=== PATIENT | female | born 1955 | race Caucasian/White ===

== ENCOUNTER 2020-01-03 12:26 | Observation (INO) | payer BC ==
[~2020-01-03] VITALS: Ht 154.9 cm; Wt 70.0 kg
[2020-01-03] MEDS ORDERED: aspirin 325mg tablet PO ONE (12:55)
[2020-01-03] MEDS ORDERED: nitroGLYCERIN 0.4mg SUBLingual tab SL PRN ×3 (12:55→17:25)
--- NOTE | 2020-01-03 13:16 | NUR ---
spoke with pt's on the phone (bia) and the pt asked for him to go home and grab her medications to bring in.
[2020-01-03 13:17] LABS: BASOPHILS # (AUTO) 0.1 X10'3 (0-0.2); BASOPHILS % (AUTO) 0.9 % (0-1); EOSINOPHILS # (AUTO) 0.6 X10'3 (0-0.9); EOSINOPHILS % (AUTO) 6.2 % (0-6); HEMATOCRIT 42.2 % (35.0-45.0); HEMOGLOBIN 14.2 g/dl (12.0-16.0); LYMPHOCYTES # (AUTO) 2.7 X10'3 (1.1-4.8); LYMPHOCYTES % (AUTO) 29.6 % (21-51); MEAN CORPUSCULAR HEMOGLOBIN 28.3 PG (27.0-31.0); MEAN CORPUSCULAR HGB CONC 33.6 g/dL (33.0-36.5); MEAN CORPUSCULAR VOLUME 84.2 FL (78-98); MEAN PLATELET VOLUME 7.9 FL (7.4-10.4); MONOCYTES # (AUTO) 0.5 X10'3 (0-0.9); MONOCYTES % (AUTO) 5.5 % (2-12); NEUTROPHILS # (AUTO) 5.3 X10'3 (1.8-7.7); NEUTROPHILS % (AUTO) 57.8 % (42-75); PLATELET COUNT 320 X10'3 (140-440); RED BLOOD COUNT 5.01 X10'6 (4.20-5.60); RED CELL DISTRIBUTION WIDTH 13.9 % (11.5-14.5); WHITE BLOOD COUNT 9.2 X10'3 (4.5-11.0)
[2020-01-03 13:30] LABS: ALANINE AMINOTRANSFERASE 38 U/L (12-78); ALBUMIN 3.5 G/DL (3.4-5.0); ALBUMIN/GLOBULIN RATIO 0.9 (1.1-1.5); ALKALINE PHOSPHATASE 97 IU/L (46-116); ANION GAP 9 (8-16); ASPARTATE AMINO TRANSFERASE 21 U/L (10-37); BILIRUBIN,TOTAL 0.2 MG/DL (0.1-1.0); BLOOD UREA NITROGEN 19 MG/DL (7-18); BUN/CREATININE RATIO 16.8 (6.6-38.0); CALCIUM 9.2 MG/DL (8.5-10.1); CHLORIDE 98 MMOL/L (99-107); CREATININE 1.13 MG/DL (0.40-0.90); GLUCOSE 291 MG/DL (70-104); POTASSIUM 4.2 MMOL/L (3.5-5.1); SODIUM 133 MMOL/L (135-145); TOTAL CARBON DIOXIDE 26.2 MMOL/L (24-32); TOTAL PROTEIN 7.3 G/DL (6.4-8.2); eGFR 49 ML/MIN
[2020-01-03] MEDS ORDERED: EFF37.5XRC PO (13:55)
[2020-01-03] MEDS ORDERED: glucagon, human recombinant 1mg kit SUBCUT PRN (13:55)
[2020-01-03] MEDS ORDERED: SITA100T11 PO (13:55)
[2020-01-03] MEDS ORDERED: dextrose 50%-water 50ml dispensing syringe IV PRN ×2 (13:55)
[2020-01-03] MEDS ORDERED: ondansetron/PF 4mg/2ml inj IV PRN (13:55)
[2020-01-03] MEDS ORDERED: morphine 2 MG/ML inj. syringe IV PRN ×2 (13:55)
[2020-01-03] MEDS ORDERED: MOME13HF2 INH (13:55)
[2020-01-03] MEDS ORDERED: dextrose ORAL solution 15 GM/59 ML bottle PO PRN ×2 (13:55)
[2020-01-03] MEDS ORDERED: insulin Lispro (HumaLOG) vial - multi-dose SQ SCH (13:55)
[2020-01-03] MEDS ORDERED: acetaminophen 325mg tablet PO PRN ×2 (13:55)
[2020-01-03] MEDS ORDERED: mag hydrox/Alum hydrox/simeth 30ml oral suspension PO PRN (13:55)
[2020-01-03] MEDS ORDERED: LISI-600 PO (13:55)
[2020-01-03] MEDS ORDERED: METF500T PO (13:55)
[2020-01-03] MEDS ORDERED: CLON-527 PO (13:55)
[2020-01-03] MEDS ORDERED: OXYB5TAB16 PO (13:55)
[2020-01-03] MEDS ORDERED: NORT25CA5 PO (13:55)
[2020-01-03] MEDS ORDERED: MESSAGE TO PHARMACY PO ONE (13:55)
[2020-01-03] MEDS ORDERED: HYDROcodone/acetaminophen 5mg/325mg tablet PO PRN (13:55)
[2020-01-03] MEDS ORDERED: magnesium hydroxide 30ml (MOM) UD suspension PO PRN (13:55)
[2020-01-03] MEDS ORDERED: FAMO-49 PO (13:55)
--- NOTE | 2020-01-03 14:28 | NUR ---
gave the pt's medications and ID cards and insurance cards back to Neel, who has been waiting outside.
--- NOTE | 2020-01-03 15:03 | NUR ---
Receiving RN not available at this time,will call ED RN less than 5 minutes.
--- NOTE | 2020-01-03 15:23 | NUR ---
Patient in room ED 9. I have received report from Mady ENCISO and had the opportunity to ask questions and assume patient care.
--- NOTE | 2020-01-03 16:00 | NUR ---
Patient arrived from the ED, report from Kris ENCISO and was oriented to the unit, belongings placed in closet, VS 126/78, HR 87, RR 18, 96%, 98.0 degrees, 2 rn skin check completed with Barby ENCISO, MRSA swab complete. Patient is pleasant and resting comfortably
[2020-01-03 16:01] LABS: HEMOGLOBIN A1C 11.1 % (4.5-6.2)
[2020-01-03 16:35] VITALS: BP 126/78
[2020-01-03] MEDS ORDERED: metoprolol tartrate 1mg/ml inj IV PRN (17:25)
[2020-01-03] MEDS ORDERED: aminophylline 250mg/10ml inj. IV PRN (17:25)
[2020-01-03] MEDS ORDERED: regadenoson 0.4mg/5ml syringe IV PRN (17:25)
[2020-01-03 18:00] VITALS: BP 150/83
--- NOTE | 2020-01-03 18:30 | NUR ---
Patient in room PCU 3027. I have received report from Roberth ENCISO and had the opportunity to ask questions and assume patient care.
--- NOTE | 2020-01-03 18:33 | NUR ---
Problems reprioritized. Patient report given, questions answered & plan of care reviewed with Karyn ENCISO.
[2020-01-03] MEDS: famotidine 20mg tablet PO SCH (20:18)
[2020-01-03] MEDS: clonazePAM 1mg tablet PO SCH (20:18)
[2020-01-03] MEDS: oxybutynin 5mg tablet PO SCH (20:18)
[2020-01-03] MEDS: nortriptyline 25mg capsule PO SCH (20:18)
[2020-01-03] MEDS: albuterol 2.5 MG/3 ML nebule NEB SCH (20:30)
[2020-01-03] MEDS: budesonide 0.5mg/2ml UD nebule IH SCH (20:31)
[2020-01-03] MEDS ORDERED: insulin glargine (Lantus) pen - multi-dose SQ SCH (21:00)
[2020-01-03 22:00] VITALS: BP 148/89
[2020-01-03] MEDS ORDERED: pneumococcal 23-VAL P-sac vacc 25 mcg/0.5ml vial IMVAC ONE (22:50)
[2020-01-04] VITALS (10 sets, daily range): BP systolic 106–176; BP diastolic 68–102
[2020-01-04 01:09] LABS: BASOPHILS # (AUTO) 0.1 X10'3 (0-0.2); BASOPHILS % (AUTO) 0.8 % (0-1); EOSINOPHILS # (AUTO) 0.5 X10'3 (0-0.9); EOSINOPHILS % (AUTO) 5.5 % (0-6); HEMATOCRIT 40.3 % (35.0-45.0); HEMOGLOBIN 13.6 g/dl (12.0-16.0); LYMPHOCYTES # (AUTO) 2.6 X10'3 (1.1-4.8); LYMPHOCYTES % (AUTO) 29.8 % (21-51); MEAN CORPUSCULAR HEMOGLOBIN 28.7 PG (27.0-31.0); MEAN CORPUSCULAR HGB CONC 33.6 g/dL (33.0-36.5); MEAN CORPUSCULAR VOLUME 85.3 FL (78-98); MEAN PLATELET VOLUME 7.6 FL (7.4-10.4); MONOCYTES # (AUTO) 0.6 X10'3 (0-0.9); MONOCYTES % (AUTO) 6.8 % (2-12); NEUTROPHILS # (AUTO) 4.9 X10'3 (1.8-7.7); NEUTROPHILS % (AUTO) 57.1 % (42-75); PLATELET COUNT 274 X10'3 (140-440); RED BLOOD COUNT 4.73 X10'6 (4.20-5.60); RED CELL DISTRIBUTION WIDTH 13.5 % (11.5-14.5); WHITE BLOOD COUNT 8.6 X10'3 (4.5-11.0)
[2020-01-04 01:24] LABS: ALBUMIN 3.1 G/DL (3.4-5.0); ANION GAP 8 (8-16); BLOOD UREA NITROGEN 17 MG/DL (7-18); BUN/CREATININE RATIO 15.3 (6.6-38.0); CALCIUM 8.3 MG/DL (8.5-10.1); CHLORIDE 100 MMOL/L (99-107); CHOL/HDL RATIO 5.1 (0.00-4.99); CHOLESTEROL 193 MG/DL (0-200); CREATININE 1.11 MG/DL (0.40-0.90); GLUCOSE 325 MG/DL (70-104); HDL CHOLESTEROL 38 MG/DL (35-60); LDL CHOLESTEROL 122 MG/DL (50-100); POTASSIUM 3.9 MMOL/L (3.5-5.1); SODIUM 137 MMOL/L (135-145); TOTAL CARBON DIOXIDE 28.9 MMOL/L (24-32); TRIGLYCERIDES 231 MG/DL (20-135); eGFR 50 ML/MIN
[2020-01-04] MEDS: albuterol 2.5 MG/3 ML nebule NEB SCH ×2 (02:36→06:55)
--- NOTE | 2020-01-04 06:13 | NUR ---
Problems reprioritized. Patient report given, questions answered & plan of care reviewed with Margret ENCISO.
--- NOTE | 2020-01-04 06:30 | NUR ---
Patient in room PCU 3027. I have received report from ZARIA Boss and had the opportunity to ask questions and assume patient care.
[2020-01-04] MEDS: budesonide 0.5mg/2ml UD nebule IH SCH (06:55)
[2020-01-04] MEDS: clonazePAM 1mg tablet PO SCH (07:54)
[2020-01-04] MEDS: nortriptyline 25mg capsule PO SCH (07:54)
[2020-01-04] MEDS: oxybutynin 5mg tablet PO SCH (07:54)
[2020-01-04] MEDS: famotidine 20mg tablet PO SCH (07:56)
[2020-01-04] MEDS ORDERED: aspirin 81mg tablet.DR PO SCH (08:00)
[2020-01-04] MEDS ORDERED: lisinopril 10 MG tablet PO SCH (08:00)
[2020-01-04] MEDS ORDERED: venlafaxine XR 37.5mg cap (Q24H) PO SCH (08:00)
--- NOTE | 2020-01-04 08:00 | NUR ---
Patient blood glucose 299. Patient NPO for stress test. Does not want Insulin until able to eat. Provided education. Will continue to Monitor.
--- NOTE | 2020-01-04 13:52 | NUR ---
Patient stable for discharge per MD orders. All discharge instructions and education reviewed with patient and all questions answered. PIV discontinues, tip intact, patient tolerated well. dressing CDI. 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 all known belongings collected and sent with patient. Patient transported to V driven by significant other. wheeled to lobby by hospital staff.
== END 2020-01-04 13:51 | disposition home or self-care (01) ==
LOC: ER 12:26 → UNDOADMOB 13:55 → ED HOLD 13:55 → PCU 3S 16:43 → ED HOLD 16:43 → UNDODISOB 01-04 13:51
PROVIDERS: ADMIT Internal Medicine; ATTEND Internal Medicine
DX: I20.9 Angina pectoris, unspecified (principal); E11.8 Type 2 diabetes mellitus with unspecified complications; F41.9 Anxiety disorder, unspecified; F32.9 Major depressive disorder, single episode, unspecified; G47.00 Insomnia, unspecified; I10 Essential (primary) hypertension; J44.9 Chronic obstructive pulmonary disease, unspecified; F17.210 Nicotine dependence, cigarettes, uncomplicated; Z79.899 Other long term (current) drug therapy; Z88.2 Allergy status to sulfonamides
CPT/HCPCS: 36415; 71045; 78452; 80048; 80053; 80061; 82948; 83036; 83880; 84484; 85025; 87081; 93005; 93017; 94640; 94760; 96372; 99285; A9500; G0378; J2785; J1815; J7626

== ENCOUNTER 2021-09-13 14:23 | Emergency (ER) | payer BC ==
[~2021-09-13] VITALS: Ht 154.9 cm; Wt 70.5 kg
[~2021-09-13 14:23] MED LIST: CLON-527 PO; EFF37.5XRC PO; FAMO-49 PO; LISI20TA28 PO; METF500T PO; MOME13HF2 INH; NORT25CA5 PO; OXYB5TAB16 PO; SITA100T11 PO
[2021-09-13 14:44] VITALS: BP 166/87
[2021-09-13] MEDS ORDERED: dexamethasone sod phosphate 10mg/ml inj PO STA (17:27)
[2021-09-13] MEDS ORDERED: PRED20TA PO (17:30)
[2021-09-13] MEDS ORDERED: AZIT-83 PO (17:30)
[2021-09-13] MEDS ORDERED: azithromycin 250mg tablet PO ONE (17:30)
== END 2021-09-13 18:19 | disposition home or self-care (01) ==
LOC: ER 14:25
DX: J44.1 Chronic obstructive pulmonary disease with (acute) exacerbation (principal); I10 Essential (primary) hypertension; J45.909 Unspecified asthma, uncomplicated; E11.9 Type 2 diabetes mellitus without complications; F32.9 Major depressive disorder, single episode, unspecified; Z88.2 Allergy status to sulfonamides; Z79.899 Other long term (current) drug therapy; Z20.822 Contact with and (suspected) exposure to COVID-19
CPT/HCPCS: 87635; 99283; C9803; J1100

== ENCOUNTER 2022-04-10 12:33 | Emergency (ER) | payer BC ==
[~2022-04-10] VITALS: Ht 154.9 cm; Wt 70.5 kg
[2022-04-10 13:04] LABS: BASOPHILS # (AUTO) 0.1 X10'3 (0-0.2); BASOPHILS % (AUTO) 0.9 % (0-1); EOSINOPHILS # (AUTO) 0.6 X10'3 (0-0.9); EOSINOPHILS % (AUTO) 7.8 % (0-6); HEMATOCRIT 36.7 % (35.0-45.0); HEMOGLOBIN 12.4 g/dl (12.0-16.0); LYMPHOCYTES # (AUTO) 2.1 X10'3 (1.1-4.8); LYMPHOCYTES % (AUTO) 30.3 % (21-51); MEAN CORPUSCULAR HEMOGLOBIN 27.8 PG (27.0-31.0); MEAN CORPUSCULAR HGB CONC 33.6 g/dL (33.0-36.5); MEAN CORPUSCULAR VOLUME 82.6 FL (78-98); MONOCYTES # (AUTO) 0.5 X10'3 (0-0.9); MONOCYTES % (AUTO) 7.7 % (2-12); NEUTROPHILS # (AUTO) 3.7 X10'3 (1.8-7.7); NEUTROPHILS % (AUTO) 53.3 % (42-75); PLATELET COUNT 406 X10'3 (140-440); RED BLOOD COUNT 4.44 X10'6 (4.20-5.60); RED CELL DISTRIBUTION WIDTH 14.8 % (11.5-14.5)
[2022-04-10 13:19] LABS: CLARITY,URINE CLEAR (Clear); COLOR,URINE YELLOW (Yellow); GLUCOSE, URINE >=1000 mg/dl (Neg); KETONES,URINE NEGATIVE (Neg); LEUKOCYTE ESTERASE ,URINE NEGATIVE (Neg); NITRITES, URINE NEGATIVE (Neg); OCCULT BLOOD,URINE NEGATIVE (Neg); PROTEIN,URINE NEGATIVE (Neg); UA COLLECTION TYPE CLN CATCH MIDSTREAM; UROBILINOGEN,URINE 0.2 E.U/dL (0.2-1.0)
[2022-04-10 13:21] LABS: ALANINE AMINOTRANSFERASE 29 U/L (12-78); ALBUMIN 3.3 G/DL (3.4-5.0); ALBUMIN/GLOBULIN RATIO 0.8 (1.1-1.5); ALKALINE PHOSPHATASE 98 IU/L (46-116); AMYLASE 41 U/L (25-115); ANION GAP 8 (8-16); ASPARTATE AMINO TRANSFERASE 12 U/L (10-37); BILIRUBIN,TOTAL 0.2 MG/DL (0.1-1.0); BLOOD UREA NITROGEN 17 MG/DL (7-18); BUN/CREATININE RATIO 15.5 (6.6-38.0); CALCIUM 9.2 MG/DL (8.5-10.1); CHLORIDE 98 MMOL/L (99-107); GLUCOSE 267 MG/DL (70-104); LIPASE 62 U/L (73-393); SODIUM 134 MMOL/L (135-145); TOTAL CARBON DIOXIDE 27.6 MMOL/L (24-32); TOTAL PROTEIN 7.6 G/DL (6.4-8.2); eGFR 50 ML/MIN
[2022-04-10 13:25] LABS: RBC,URINE 0-2 /HPF (0-2); SQUAMOUS EPITHELIAL CELL,UR MODERATE /LPF (FEW)
[2022-04-10 13:26] LABS: BACTERIA,URINE FEW /HPF (Neg)
[2022-04-10] MEDS ORDERED: TRAM50TA2 PO (17:39)
[2022-04-10 17:52] VITALS: BP 151/84
== END 2022-04-10 17:55 | disposition home or self-care (01) ==
LOC: ER 12:33
DX: K80.50 Calculus of bile duct without cholangitis or cholecystitis without obstruction (principal); J44.9 Chronic obstructive pulmonary disease, unspecified; E11.9 Type 2 diabetes mellitus without complications; J45.909 Unspecified asthma, uncomplicated; I10 Essential (primary) hypertension; F17.200 Nicotine dependence, unspecified, uncomplicated; Z88.2 Allergy status to sulfonamides; Z79.899 Other long term (current) drug therapy
CPT/HCPCS: 36415; 76700; 80053; 81001; 82150; 83690; 85025; 87077; 87088; 87186; 99284

== ENCOUNTER 2022-08-23 11:54 | Emergency (ER) | payer BC ==
[~2022-08-23] VITALS: Ht 154.9 cm; Wt 62.7 kg
[~2022-08-23 11:54] MED LIST changes: +BACL10TA2 PO; -EFF37.5XRC PO; +HYDR25TA4 PO; +LANTUS SQ; -LISI20TA28 PO; +LOSA50TA64 PO; -SITA100T11 PO; +VENL75CA61 PO
[2022-08-23 17:03] LABS: ALANINE AMINOTRANSFERASE 33 U/L (12-78); ALBUMIN 2.7 G/DL (3.4-5.0); ALBUMIN/GLOBULIN RATIO 0.6 (1.1-1.5); ALKALINE PHOSPHATASE 65 IU/L (46-116); ANION GAP 10 (8-16); ASPARTATE AMINO TRANSFERASE 51 U/L (10-37); BILIRUBIN,TOTAL 0.5 MG/DL (0.1-1.0); BLOOD UREA NITROGEN 26 MG/DL (7-18); BUN/CREATININE RATIO 15.3 (6.6-38.0); CHLORIDE 96 MMOL/L (99-107); GLUCOSE 107 MG/DL (70-104); POTASSIUM 3.7 MMOL/L (3.5-5.1); SODIUM 133 MMOL/L (135-145); TOTAL CARBON DIOXIDE 27.2 MMOL/L (24-32); TOTAL PROTEIN 6.9 G/DL (6.4-8.2); eGFR 30 ML/MIN
[2022-08-23 17:59] LABS: BASOPHILS % (AUTO) 0.4 % (0-1); EOSINOPHILS # (AUTO) 0.1 X10'3 (0-0.9); EOSINOPHILS % (AUTO) 1.3 % (0-6); HEMATOCRIT 32.2 % (35.0-45.0); HEMOGLOBIN 10.7 g/dl (12.0-16.0); LYMPHOCYTES # (AUTO) 1.9 X10'3 (1.1-4.8); LYMPHOCYTES % (AUTO) 19.3 % (21-51); MEAN CORPUSCULAR HEMOGLOBIN 27.5 PG (27.0-31.0); MEAN CORPUSCULAR HGB CONC 33.2 g/dL (33.0-36.5); MEAN PLATELET VOLUME 7.7 FL (7.4-10.4); MONOCYTES # (AUTO) 1.2 X10'3 (0-0.9); MONOCYTES % (AUTO) 12.3 % (2-12); NEUTROPHILS # (AUTO) 6.6 X10'3 (1.8-7.7); NEUTROPHILS % (AUTO) 66.7 % (42-75); PLATELET COUNT 254 X10'3 (140-440); RED BLOOD COUNT 3.88 X10'6 (4.20-5.60); WHITE BLOOD COUNT 9.8 X10'3 (4.5-11.0)
[2022-08-23] MEDS ORDERED: ONDA8TAB13 PO (18:35)
[2022-08-23 19:19] VITALS: BP 128/67
== END 2022-08-23 19:20 | disposition home or self-care (01) ==
LOC: ER 11:54
DX: R53.81 Other malaise (principal); Z20.822 Contact with and (suspected) exposure to COVID-19; R53.83 Other fatigue; R11.10 Vomiting, unspecified; R05.9 Cough, unspecified; I10 Essential (primary) hypertension; J45.909 Unspecified asthma, uncomplicated; J44.9 Chronic obstructive pulmonary disease, unspecified; E11.9 Type 2 diabetes mellitus without complications; G89.29 Other chronic pain; Z88.2 Allergy status to sulfonamides
CPT/HCPCS: 36415; 71046; 80053; 85025; 87502; 87503; 87635; 99284; C9803

== ENCOUNTER 2022-09-21 09:21 | Emergency (ER) | payer BC ==
[~2022-09-21] VITALS: Ht 154.9 cm; Wt 68.0 kg
[~2022-09-21 09:21] MED LIST changes: +ASPI-611 PO; +ATOR10TA PO; +COR3.125T PO; -FAMO-49 PO; +FLUT1BLS12 PO; +FURO40TA4 PO; -HYDR25TA4 PO; -MOME13HF2 INH; +ONDA8TAB13 PO; +SPIR25TA PO
[2022-09-21 09:37] LABS: BASOPHILS # (AUTO) 0.1 X10'3 (0-0.2); BASOPHILS % (AUTO) 0.8 % (0-1); EOSINOPHILS # (AUTO) 1.4 X10'3 (0-0.9); EOSINOPHILS % (AUTO) 14.6 % (0-6); HEMATOCRIT 35.3 % (35.0-45.0); HEMOGLOBIN 11.5 g/dl (12.0-16.0); MEAN CORPUSCULAR HEMOGLOBIN 27.6 PG (27.0-31.0); MEAN CORPUSCULAR HGB CONC 32.7 g/dL (33.0-36.5); MEAN CORPUSCULAR VOLUME 84.6 FL (78-98); MEAN PLATELET VOLUME 7.7 FL (7.4-10.4); MONOCYTES # (AUTO) 0.7 X10'3 (0-0.9); MONOCYTES % (AUTO) 7.3 % (2-12); NEUTROPHILS # (AUTO) 4.2 X10'3 (1.8-7.7); NEUTROPHILS % (AUTO) 45.3 % (42-75); PLATELET COUNT 341 X10'3 (140-440); RED BLOOD COUNT 4.17 X10'6 (4.20-5.60); RED CELL DISTRIBUTION WIDTH 15.2 % (11.5-14.5); WHITE BLOOD COUNT 9.3 X10'3 (4.5-11.0)
[2022-09-21 10:05] LABS: ALANINE AMINOTRANSFERASE 15 U/L (12-78); ALBUMIN 3.6 G/DL (3.4-5.0); ALBUMIN/GLOBULIN RATIO 0.9 (1.1-1.5); ALKALINE PHOSPHATASE 83 IU/L (46-116); ANION GAP 9 (8-16); ASPARTATE AMINO TRANSFERASE 14 U/L (10-37); BILIRUBIN,TOTAL 0.3 MG/DL (0.1-1.0); BLOOD UREA NITROGEN 32 MG/DL (7-18); BUN/CREATININE RATIO 19.6 (6.6-38.0); CALCIUM 9.2 MG/DL (8.5-10.1); CHLORIDE 100 MMOL/L (99-107); CREATININE 1.63 MG/DL (0.40-0.90); GLUCOSE 122 MG/DL (70-104); POTASSIUM 4.8 MMOL/L (3.5-5.1); SODIUM 138 MMOL/L (135-145); TOTAL CARBON DIOXIDE 28.6 MMOL/L (24-32); TOTAL PROTEIN 7.7 G/DL (6.4-8.2); eGFR 32 ML/MIN
[2022-09-21 10:12] LABS: MAGNESIUM 1.7 MG/DL (1.5-2.4)
--- NOTE | 2022-09-21 10:49 | NUR ---
Note nallely in EDM - 09/21/22 at [address] Nunu Scott RN RE: Ella Alves. Pt in pain she is asking for [place], she refused Tylenol.
[2022-09-21] MEDS ORDERED: FURO-150 PO (13:28)
[2022-09-21] MEDS ORDERED: SACU1TAB7 PO (13:28)
[2022-09-21 13:56] VITALS: BP 125/83
== END 2022-09-21 13:59 | disposition home or self-care (01) ==
LOC: ER 09:21
DX: I50.21 Acute systolic (congestive) heart failure (principal); R07.9 Chest pain, unspecified; I13.2 Hypertensive heart and chronic kidney disease with heart failure and with stage 5 chronic kidney disease, or end stage renal disease; E09.22 Drug or chemical induced diabetes mellitus with diabetic chronic kidney disease; N18.6 End stage renal disease; G89.29 Other chronic pain; F32.A Depression, unspecified; J44.9 Chronic obstructive pulmonary disease, unspecified; Z88.2 Allergy status to sulfonamides; Z79.899 Other long term (current) drug therapy; Z79.82 Long term (current) use of aspirin; Z79.1 Long term (current) use of non-steroidal anti-inflammatories (NSAID); Z79.2 Long term (current) use of antibiotics
CPT/HCPCS: 36415; 71045; 80053; 82948; 83735; 83880; 84439; 84484; 85025; 93005; 99285

== ENCOUNTER 2023-06-15 09:08 | Inpatient (IN) | payer BC ==
[~2023-06-15] VITALS: Ht 154.9 cm; Wt 78.0 kg
[~2023-06-15 09:08] MED LIST changes: -FURO40TA4 PO; +SACU1TAB7 PO
[2023-06-15 10:23] LABS: BASOPHILS % (AUTO) 0.6 % (0-1); EOSINOPHILS # (AUTO) 0.7 X10'3 (0-0.9); EOSINOPHILS % (AUTO) 8.2 % (0-6); HEMATOCRIT 33.5 % (35.0-45.0); HEMOGLOBIN 11.2 g/dl (12.0-16.0); LYMPHOCYTES # (AUTO) 2.1 X10'3 (1.1-4.8); LYMPHOCYTES % (AUTO) 24.3 % (21-51); MEAN CORPUSCULAR HGB CONC 33.4 g/dL (33.0-36.5); MEAN CORPUSCULAR VOLUME 86.8 FL (78-98); MEAN PLATELET VOLUME 7.3 FL (7.4-10.4); MONOCYTES # (AUTO) 0.4 X10'3 (0-0.9); MONOCYTES % (AUTO) 4.5 % (2-12); NEUTROPHILS # (AUTO) 5.5 X10'3 (1.8-7.7); NEUTROPHILS % (AUTO) 62.4 % (42-75); PLATELET COUNT 281 X10'3 (140-440); RED BLOOD COUNT 3.86 X10'6 (4.20-5.60); WHITE BLOOD COUNT 8.7 X10'3 (4.5-11.0)
[2023-06-15 10:37] LABS: ALANINE AMINOTRANSFERASE 13 U/L (12-78); ALBUMIN 3.4 G/DL (3.4-5.0); ALBUMIN/GLOBULIN RATIO 0.8 (1.1-1.5); ALKALINE PHOSPHATASE 91 IU/L (46-116); ANION GAP 10 (8-16); ASPARTATE AMINO TRANSFERASE 12 U/L (10-37); BILIRUBIN,TOTAL 0.2 MG/DL (0.1-1.0); BLOOD UREA NITROGEN 60 MG/DL (7-18); BUN/CREATININE RATIO 19.8 (10.0-20.0); CALCIUM 9.3 MG/DL (8.5-10.1); CHLORIDE 101 MMOL/L (99-107); CREATININE 3.03 MG/DL (0.40-0.90); GLUCOSE 128 MG/DL (70-104); POTASSIUM 5.7 MMOL/L (3.5-5.1); SODIUM 135 MMOL/L (135-145); TOTAL CARBON DIOXIDE 23.9 MMOL/L (24-32); TOTAL PROTEIN 7.7 G/DL (6.4-8.2); eCRCL 14 ML/MIN; eGFR 15 ML/MIN
--- NOTE | 2023-06-15 11:08 | NUR ---
I REVIEWED AND AGREE WITH THE ASSESSMENT.
[2023-06-15] MEDS ORDERED: normal saline 1000ML IV soln IVB ONE (11:20)
[2023-06-15] MEDS ORDERED: normal saline 1000ml 1,000 ML IV ONE (11:40)
[2023-06-15] MEDS ORDERED: glucagon, human recombinant 1mg kit SUBCUT PRN (13:35)
[2023-06-15] MEDS ORDERED: magnesium 4gm in 100ml NS 100 ML IV PRN (13:35)
[2023-06-15] MEDS ORDERED: acetaminophen 325mg tablet PO PRN (13:35)
[2023-06-15] MEDS: normal saline 1000ml 1,000 ML IV SCH ×3 (13:35→20:22)
[2023-06-15] MEDS ORDERED: potassium Cl 20 mEq SR tablet PO PRN ×2 (13:35)
[2023-06-15] MEDS ORDERED: mag hydrox/Alum hydrox/simeth 30ml oral suspension PO PRN (13:35)
[2023-06-15] MEDS ORDERED: DEXTROSE 15 GM of carb/4 tabs (each vial/BOTTLE has 4 tablets) PO PRN ×2 (13:35)
[2023-06-15] MEDS ORDERED: magnesium 2GM in 50ml NS 50 ML IV PRN (13:35)
[2023-06-15] MEDS ORDERED: MESSAGE TO PHARMACY PO ONE (13:35)
[2023-06-15] MEDS ORDERED: PERFLUTREN PROTEIN-A MICROSPHR (Optison) 0.22 MG/ML 3ML VIAL IV ONE (13:35)
[2023-06-15] MEDS ORDERED: dextrose 50%-water 50ml dispensing syringe IV PRN ×2 (13:35)
[2023-06-15] MEDS ORDERED: potassium Cl 40MEQ/1/2NS 520ml 520 ML IV PRN (13:35)
[2023-06-15] MEDS ORDERED: FLUT1BLS12 PO (14:25)
[2023-06-15] MEDS ORDERED: LANTUS SQ (14:25)
[2023-06-15] MEDS ORDERED: NORT25CA PO (14:25)
[2023-06-15] MEDS ORDERED: CLON1TAB12 PO (14:25)
[2023-06-15] MEDS ORDERED: OXYB5TAB16 PO (14:25)
[2023-06-15] MEDS ORDERED: FURO40TA4 PO (14:25)
[2023-06-15] MEDS ORDERED: ATOR10TA70 PO (14:25)
[2023-06-15] MEDS ORDERED: BACL10TA2 PO (14:25)
[2023-06-15] MEDS ORDERED: CARV-50 PO (14:25)
[2023-06-15] MEDS ORDERED: METF-438 PO (14:25)
[2023-06-15] MEDS ORDERED: SACU1TAB7 PO (14:25)
[2023-06-15] MEDS ORDERED: VENL75CA61 PO (14:27)
[2023-06-15] MEDS ORDERED: ACET-2006 PO (14:27)
[2023-06-15] MEDS ORDERED: SPIR25TA5 PO (14:27)
--- NOTE | 2023-06-15 15:00 | NUR ---
TOBACCO SAMPLER AT BEDSIDE
[2023-06-15 15:54] LABS: BILIRUBIN,URINE NEGATIVE (Neg); CLARITY,URINE SLIGHTLY CLOUDY (Clear); COLOR,URINE STRAW (Yellow); GLUCOSE, URINE NEGATIVE (Neg); KETONES,URINE NEGATIVE (Neg); LEUKOCYTE ESTERASE ,URINE MODERATE (Neg); NITRITES, URINE NEGATIVE (Neg); OCCULT BLOOD,URINE NEGATIVE (Neg); PH,URINE 5.5 (4.8-8.0); PROTEIN,URINE NEGATIVE (Neg); UROBILINOGEN,URINE 0.2 E.U/dL (0.2-1.0)
[2023-06-15 15:56] LABS: UA COLLECTION TYPE STRAIGHT CATH
[2023-06-15 16:04] LABS: BACTERIA,URINE FEW /HPF (Neg); MUCUS STRANDS NONE SEEN /LPF (Neg); RBC,URINE NONE SEEN /HPF (0-2); SQUAMOUS EPITHELIAL CELL,UR NONE SEEN /LPF (FEW); WBC CLUMPS,URINE MODERATE /HPF (NEGATIVE); WBC,URINE 30-50 /HPF (0-4); YEAST FEW /HPF (NEGATIVE)
[2023-06-15] MEDS ORDERED: acetaminophen 325mg tablet PO ONE (16:10)
--- NOTE | 2023-06-15 18:14 | NUR ---
dr caraballo came and checked on patient with verbal to up fluids from 60 ml per hour to 120 ml per hour and map to stay above 60
--- NOTE | 2023-06-15 18:20 | NUR ---
Patient arrived from ER on [facility].
--- NOTE | 2023-06-15 19:15 | NUR ---
Report given to me by Tian ENCISO from ER.
[2023-06-15] MEDS: docusate sod 100mg capsule PO SCH (20:00)
[2023-06-15] MEDS: K and/or MAG REPLACEMENT MC SCH (20:00)
--- NOTE | 2023-06-15 20:00 | NUR ---
C/O that she has asthma and can't wear oxygen since it dries her nose out and she can't breathe with it. She has has been blowing her nose repeatedly and asking for her inhaler that is prescribed. Her oxygen saturation is wnl's. C/O shortness of breath with blowing her nose, chronic issue Addendum: 06/16/23 at 0147 by Phuong Alford RN Amended: Links added.
[2023-06-15] MEDS ORDERED: CefTRIAXone/D5W-Rocephin 1gm 50 ML IV ONE (20:40)
[2023-06-15 21:00] VITALS: BP_SYST 128; BP_SYST 82; BP_DIAS 43; BP_DIAS 65; PULSE 72; RESP 17; TEMP 96.8; O2SAT 99
[2023-06-15 21:05] VITALS: BP 89/50
[2023-06-15 21:20] VITALS: BP 110/68
[2023-06-15 22:00] VITALS: BP 110/68; PULSE 63; RESP 16; TEMP 96.9; O2SAT 96
[2023-06-15] MEDS: heparin, porcine 5000 units/ml vial SQ SCH (22:01)
[2023-06-15] MEDS: diphenhydrAMINE 25mg capsule PO PRN (22:02)
[2023-06-15] MEDS: acetaminophen 325mg tablet PO PRN (22:03)
[2023-06-15] MEDS: clonazePAM 1mg tablet PO SCH (22:59)
[2023-06-15] MEDS: oxybutynin 5mg tablet PO SCH (22:59)
[2023-06-15] MEDS: nortriptyline 25mg capsule PO SCH (22:59)
[2023-06-15] MEDS: carVEDilol 12.5mg tablet PO SCH (22:59)
[2023-06-15] MEDS: insulin glargine (Lantus) pen - multi-dose SQ SCH (23:05)
--- NOTE | 2023-06-15 23:50 | NUR ---
Patient report given, questions answered & plan of care reviewed with Mariola ENCISO.
[2023-06-16] VITALS (9 sets, daily range): BP systolic 131–144; BP diastolic 61–70; PULSE 60–81; RESP 16–18; TEMP 96.8–97.7; O2SAT 94–100
[2023-06-16] MEDS: normal saline 1000ml 1,000 ML IV SCH ×3 (02:55→22:55)
[2023-06-16 04:22] LABS: BASOPHILS % (AUTO) 0.6 % (0-1); EOSINOPHILS # (AUTO) 0.6 X10'3 (0-0.9); EOSINOPHILS % (AUTO) 8.9 % (0-6); HEMATOCRIT 29.7 % (35.0-45.0); HEMOGLOBIN 9.8 g/dl (12.0-16.0); LYMPHOCYTES # (AUTO) 2.5 X10'3 (1.1-4.8); LYMPHOCYTES % (AUTO) 34.3 % (21-51); MEAN CORPUSCULAR HEMOGLOBIN 28.7 PG (27.0-31.0); MEAN CORPUSCULAR HGB CONC 33.2 g/dL (33.0-36.5); MEAN CORPUSCULAR VOLUME 86.6 FL (78-98); MEAN PLATELET VOLUME 7.9 FL (7.4-10.4); MONOCYTES # (AUTO) 0.5 X10'3 (0-0.9); MONOCYTES % (AUTO) 6.5 % (2-12); NEUTROPHILS # (AUTO) 3.6 X10'3 (1.8-7.7); NEUTROPHILS % (AUTO) 49.7 % (42-75); PLATELET COUNT 248 X10'3 (140-440); RED BLOOD COUNT 3.43 X10'6 (4.20-5.60); WHITE BLOOD COUNT 7.3 X10'3 (4.5-11.0)
[2023-06-16 04:38] LABS: ALANINE AMINOTRANSFERASE 10 U/L (12-78); ALBUMIN 2.8 G/DL (3.4-5.0); ALBUMIN/GLOBULIN RATIO 0.8 (1.1-1.5); ALKALINE PHOSPHATASE 78 IU/L (46-116); ANION GAP 7 (8-16); ASPARTATE AMINO TRANSFERASE 10 U/L (10-37); BILIRUBIN,TOTAL 0.1 MG/DL (0.1-1.0); BLOOD UREA NITROGEN 46 MG/DL (7-18); BUN/CREATININE RATIO 21.1 (10.0-20.0); CALCIUM 8.5 MG/DL (8.5-10.1); CHLORIDE 107 MMOL/L (99-107); CREATININE 2.18 MG/DL (0.40-0.90); GLUCOSE 131 MG/DL (70-104); MAGNESIUM 1.8 MG/DL (1.5-2.4); POTASSIUM 4.8 MMOL/L (3.5-5.1); PRO BRAIN NATRIURETIC PEPTIDE 1187 PG/ML (0-125); SODIUM 139 MMOL/L (135-145); TOTAL CARBON DIOXIDE 25.5 MMOL/L (24-32); TOTAL PROTEIN 6.3 G/DL (6.4-8.2); eCRCL 19 ML/MIN; eGFR 23 ML/MIN
--- NOTE | 2023-06-16 06:50 | NUR ---
Patient in room ORTHO 4021. I have received report from [employer] and had the opportunity to ask questions and assume patient care.
[2023-06-16] MEDS: carVEDilol 12.5mg tablet PO SCH ×2 (07:46→20:28)
[2023-06-16] MEDS: atorvastatin 10mg tablet PO SCH (07:47)
[2023-06-16] MEDS: heparin, porcine 5000 units/ml vial SQ SCH ×2 (07:48→20:29)
[2023-06-16] MEDS: clonazePAM 1mg tablet PO SCH ×2 (07:49→20:28)
[2023-06-16] MEDS: oxybutynin 5mg tablet PO SCH ×2 (07:51→20:28)
[2023-06-16] MEDS: nortriptyline 25mg capsule PO SCH ×2 (07:52→20:28)
[2023-06-16] MEDS: docusate sod 100mg capsule PO SCH ×2 (08:00→20:28)
[2023-06-16] MEDS: CefTRIAXone/D5W-Rocephin 1gm 50 ML IV SCH (08:12)
[2023-06-16] MEDS: K and/or MAG REPLACEMENT MC SCH ×2 (08:13→20:00)
--- NOTE | 2023-06-16 11:00 | NUR ---
pt seen with Dr Henderson, new orders received to discontinue IV fluids now that Mary is drinking, CXR ordered to assess lung status
--- NOTE | 2023-06-16 12:03 | NUR ---
spoke with Geovanna in pharmacy regarding her home [place], they will switch to meds per isaiah to order Addendum: 06/16/23 at 1204 by Megan Nolasco RN Amended: Links added.
--- NOTE | 2023-06-16 14:06 | NUR ---
[facility] 4024K ok to increase diet from clears to carb control? Megan Ext [id number]
[2023-06-16] MEDS ORDERED: albuterol 2.5 MG/3 ML nebule NEB SCH (16:42)
[2023-06-16] MEDS ORDERED: budesonide 0.5mg/2ml UD nebule IH SCH (16:43)
--- NOTE | 2023-06-16 17:17 | NUR ---
Orientee documentation:Mervat RN I have reviewed and agree with all interventions, medication administration per hospital policy, and assessments performed and documented by orientee. Reviewed assessments and provided appropriate feedback. ZARIA sue made updates to the documentation where needed.
--- NOTE | 2023-06-16 18:25 | NUR ---
Patient in room ORTHO 4021. I have received report from ZARIA RAMOS and had the opportunity to ask questions and assume patient care.
[2023-06-16] MEDS: insulin Lispro (HumaLOG) vial - multi-dose SQ SCH (19:52)
[2023-06-16] MEDS: albuterol 2.5 MG/3 ML nebule NEB SCH (20:41)
[2023-06-16] MEDS: budesonide 0.5mg/2ml UD nebule IH SCH (20:42)
[2023-06-16] MEDS: insulin glargine (Lantus) pen - multi-dose SQ SCH (22:08)
[2023-06-17] VITALS (14 sets, daily range): BP systolic 121–138; BP diastolic 74–85; PULSE 60–97; RESP 16–22; TEMP 97.4–98.1; O2SAT 95–99
[2023-06-17] MEDS: albuterol 2.5 MG/3 ML nebule NEB SCH ×4 (03:04→20:09)
[2023-06-17] MEDS: acetaminophen 325mg tablet PO PRN ×2 (03:21→21:27)
--- NOTE | 2023-06-17 06:00 | NUR ---
report received from Chelsea Ordoñez RN, care assumed. Megan ENCISO
[2023-06-17 06:37] LABS: ALANINE AMINOTRANSFERASE 15 U/L (12-78); ALBUMIN 2.8 G/DL (3.4-5.0); ALBUMIN/GLOBULIN RATIO 0.7 (1.1-1.5); ALKALINE PHOSPHATASE 78 IU/L (46-116); ANION GAP 6 (8-16); ASPARTATE AMINO TRANSFERASE 14 U/L (10-37); BILIRUBIN,TOTAL 0.2 MG/DL (0.1-1.0); BLOOD UREA NITROGEN 28 MG/DL (7-18); BUN/CREATININE RATIO 16.8 (10.0-20.0); CALCIUM 8.8 MG/DL (8.5-10.1); CHLORIDE 106 MMOL/L (99-107); CREATININE 1.67 MG/DL (0.40-0.90); GLUCOSE 139 MG/DL (70-104); MAGNESIUM 1.5 MG/DL (1.5-2.4); POTASSIUM 5.5 MMOL/L (3.5-5.1); SODIUM 138 MMOL/L (135-145); TOTAL PROTEIN 6.7 G/DL (6.4-8.2); eCRCL 25 ML/MIN; eGFR 31 ML/MIN
[2023-06-17 06:39] LABS: BASOPHILS % (AUTO) 0.4 % (0-1); EOSINOPHILS # (AUTO) 0.8 X10'3 (0-0.9); EOSINOPHILS % (AUTO) 9.4 % (0-6); HEMOGLOBIN 10.6 g/dl (12.0-16.0); LYMPHOCYTES # (AUTO) 2.4 X10'3 (1.1-4.8); LYMPHOCYTES % (AUTO) 29.1 % (21-51); MEAN CORPUSCULAR HEMOGLOBIN 28.9 PG (27.0-31.0); MEAN CORPUSCULAR HGB CONC 34.1 g/dL (33.0-36.5); MEAN CORPUSCULAR VOLUME 84.7 FL (78-98); MEAN PLATELET VOLUME 7.9 FL (7.4-10.4); MONOCYTES # (AUTO) 0.4 X10'3 (0-0.9); MONOCYTES % (AUTO) 5.4 % (2-12); NEUTROPHILS # (AUTO) 4.6 X10'3 (1.8-7.7); NEUTROPHILS % (AUTO) 55.7 % (42-75); PLATELET COUNT 285 X10'3 (140-440); RED BLOOD COUNT 3.66 X10'6 (4.20-5.60); RED CELL DISTRIBUTION WIDTH 13.9 % (11.5-14.5); WHITE BLOOD COUNT 8.2 X10'3 (4.5-11.0)
--- NOTE | 2023-06-17 06:41 | NUR ---
Patient in room ORTHO 4021. I have received report from Megan RN, orientee, and had the opportunity to ask questions and assume patient care.
[2023-06-17] MEDS: normal saline 1000ml 1,000 ML IV SCH (07:00)
[2023-06-17] MEDS: nortriptyline 25mg capsule PO SCH ×2 (07:24→20:27)
[2023-06-17] MEDS: atorvastatin 10mg tablet PO SCH (07:24)
[2023-06-17] MEDS: carVEDilol 12.5mg tablet PO SCH ×2 (07:24→20:26)
[2023-06-17] MEDS: clonazePAM 1mg tablet PO SCH ×2 (07:24→20:27)
[2023-06-17] MEDS: heparin, porcine 5000 units/ml vial SQ SCH ×2 (07:28→20:26)
[2023-06-17] MEDS: docusate sod 100mg capsule PO SCH ×2 (08:00→20:26)
[2023-06-17] MEDS: K and/or MAG REPLACEMENT MC SCH ×2 (08:53→20:00)
[2023-06-17] MEDS: oxybutynin 5mg tablet PO SCH ×2 (08:55→20:26)
[2023-06-17] MEDS: CefTRIAXone/D5W-Rocephin 1gm 50 ML IV SCH (08:56)
[2023-06-17] MEDS: budesonide 0.5mg/2ml UD nebule IH SCH ×2 (09:00→20:09)
[2023-06-17] MEDS: insulin Lispro (HumaLOG) vial - multi-dose SQ SCH ×3 (09:41→19:42)
[2023-06-17 15:58] LABS: ALBUMIN 2.7 G/DL (3.4-5.0); ANION GAP 5 (8-16); BLOOD UREA NITROGEN 28 MG/DL (7-18); CALCIUM 8.8 MG/DL (8.5-10.1); CHLORIDE 105 MMOL/L (99-107); CREATININE 1.87 MG/DL (0.40-0.90); GLUCOSE 106 MG/DL (70-104); POTASSIUM 4.4 MMOL/L (3.5-5.1); SODIUM 136 MMOL/L (135-145); TOTAL CARBON DIOXIDE 26.1 MMOL/L (24-32); eCRCL 22 ML/MIN; eGFR 27 ML/MIN
--- NOTE | 2023-06-17 18:30 | NUR ---
report given to Trace Guzman RN Addendum: 06/17/23 at 1830 by Megan Nolasco RN Amended: Links added.
[2023-06-17] MEDS: fluconazole 100mg tablet PO SCH (20:26)
[2023-06-17] MEDS: sacubitril/valsartan 49mg-51mg tablet PO SCH (21:15)
[2023-06-17] MEDS: diphenhydrAMINE 25mg capsule PO PRN (21:28)
[2023-06-17] MEDS: insulin glargine (Lantus) pen - multi-dose SQ SCH (21:32)
[2023-06-18] VITALS (14 sets, daily range): BP systolic 109–145; BP diastolic 68–84; PULSE 72–91; RESP 14–18; TEMP 98–98.8; O2SAT 93–98
[2023-06-18] MEDS: albuterol 2.5 MG/3 ML nebule NEB SCH ×4 (03:04→20:34)
[2023-06-18 06:26] LABS: ALANINE AMINOTRANSFERASE 16 U/L (12-78); ALBUMIN/GLOBULIN RATIO 0.8 (1.1-1.5); ALKALINE PHOSPHATASE 83 IU/L (46-116); ANION GAP 9 (8-16); ASPARTATE AMINO TRANSFERASE 13 U/L (10-37); BILIRUBIN,TOTAL 0.2 MG/DL (0.1-1.0); BLOOD UREA NITROGEN 26 MG/DL (7-18); BUN/CREATININE RATIO 14.4 (10.0-20.0); CALCIUM 9.1 MG/DL (8.5-10.1); CHLORIDE 103 MMOL/L (99-107); GLUCOSE 186 MG/DL (70-104); MAGNESIUM 1.4 MG/DL (1.5-2.4); SODIUM 137 MMOL/L (135-145); TOTAL CARBON DIOXIDE 25.3 MMOL/L (24-32); eCRCL 23 ML/MIN; eGFR 28 ML/MIN
--- NOTE | 2023-06-18 06:30 | NUR ---
Problems reprioritized. Patient report given, questions answered & plan of care reviewed with Douglas. Addendum: 06/18/23 at 0640 by Mejia Land RN Amended: Links added.
[2023-06-18 06:34] LABS: BASOPHILS % (AUTO) 0.5 % (0-1); EOSINOPHILS # (AUTO) 0.6 X10'3 (0-0.9); EOSINOPHILS % (AUTO) 6.7 % (0-6); HEMATOCRIT 32.2 % (35.0-45.0); HEMOGLOBIN 10.8 g/dl (12.0-16.0); LYMPHOCYTES # (AUTO) 2.1 X10'3 (1.1-4.8); LYMPHOCYTES % (AUTO) 25.8 % (21-51); MEAN CORPUSCULAR HEMOGLOBIN 28.6 PG (27.0-31.0); MEAN CORPUSCULAR HGB CONC 33.6 g/dL (33.0-36.5); MEAN CORPUSCULAR VOLUME 85.2 FL (78-98); MEAN PLATELET VOLUME 7.8 FL (7.4-10.4); MONOCYTES # (AUTO) 0.6 X10'3 (0-0.9); MONOCYTES % (AUTO) 6.7 % (2-12); NEUTROPHILS % (AUTO) 60.3 % (42-75); PLATELET COUNT 297 X10'3 (140-440); RED BLOOD COUNT 3.79 X10'6 (4.20-5.60); WHITE BLOOD COUNT 8.3 X10'3 (4.5-11.0)
--- NOTE | 2023-06-18 06:51 | NUR ---
Patient in room ORTHO 4021. I have received report from BRADY ENCISO and had the opportunity to ask questions and assume patient care.
[2023-06-18] MEDS: CefTRIAXone/D5W-Rocephin 1gm 50 ML IV SCH (07:14)
[2023-06-18] MEDS: ondansetron/PF 4mg/2ml inj IV PRN ×2 (07:14→19:46)
[2023-06-18] MEDS: fluconazole 100mg tablet PO SCH (07:14)
[2023-06-18] MEDS: nortriptyline 25mg capsule PO SCH ×2 (07:15→19:52)
[2023-06-18] MEDS: sacubitril/valsartan 49mg-51mg tablet PO SCH ×2 (07:15→19:53)
[2023-06-18] MEDS: docusate sod 100mg capsule PO SCH ×2 (07:16→19:50)
[2023-06-18] MEDS: heparin, porcine 5000 units/ml vial SQ SCH ×2 (07:16→19:52)
[2023-06-18] MEDS: carVEDilol 12.5mg tablet PO SCH ×2 (07:16→19:50)
[2023-06-18] MEDS: oxybutynin 5mg tablet PO SCH ×2 (07:17→19:50)
[2023-06-18] MEDS: clonazePAM 1mg tablet PO SCH ×2 (07:17→19:50)
[2023-06-18] MEDS: venlafaxine XR 75mg capsule (Q24H) PO SCH (07:17)
[2023-06-18] MEDS: atorvastatin 10mg tablet PO SCH (07:17)
[2023-06-18] MEDS: K and/or MAG REPLACEMENT MC SCH ×2 (08:00→19:50)
[2023-06-18] MEDS: normal saline 1000ml 1,000 ML IV SCH ×2 (08:15→13:52)
[2023-06-18] MEDS: budesonide 0.5mg/2ml UD nebule IH SCH ×2 (08:55→20:34)
[2023-06-18] MEDS: acetaminophen 325mg tablet PO PRN ×2 (09:10→19:54)
[2023-06-18] MEDS: insulin Lispro (HumaLOG) vial - multi-dose SQ SCH ×3 (10:38→19:45)
[2023-06-18] MEDS ORDERED: magnesium oxide 400mg tablet PO ONE (12:45)
[2023-06-18] MEDS: nystatin 15 GM powder TP SCH ×2 (13:03→21:42)
[2023-06-18] MEDS ORDERED: magnesium 4gm in 100ml NS 100 ML IV PRN (15:25)
[2023-06-18] MEDS ORDERED: potassium Cl 40MEQ/1/2NS 520ml 520 ML IV PRN (15:25)
[2023-06-18] MEDS ORDERED: magnesium Cl slow-release 64mg tablet PO PRN (15:25)
[2023-06-18] MEDS ORDERED: potassium Cl 20 mEq SR tablet PO PRN ×2 (15:25)
[2023-06-18] MEDS ORDERED: magnesium 2GM in 50ml NS 50 ML IV PRN (15:25)
--- NOTE | 2023-06-18 18:25 | NUR ---
Problems reprioritized. Patient report given TO BRADY ENCISO, questions answered & plan of care reviewed with .
[2023-06-18] MEDS: insulin glargine (Lantus) pen - multi-dose SQ SCH (21:29)
[2023-06-19] VITALS (15 sets, daily range): BP systolic 111–150; BP diastolic 60–75; PULSE 64–89; RESP 14–20; TEMP 97.6–98.1; O2SAT 95–98
[2023-06-19] MEDS: albuterol 2.5 MG/3 ML nebule NEB SCH ×4 (02:51→20:15)
--- NOTE | 2023-06-19 06:20 | NUR ---
Patient in room ORTHO 4021. I have received report from Trace and had the opportunity to ask questions and assume patient care.
--- NOTE | 2023-06-19 06:43 | NUR ---
Problems reprioritized. Patient report given, questions answered & plan of care reviewed with Xiomy. Addendum: 06/19/23 at 0643 by Mejia Land RN Amended: Links added.
[2023-06-19 06:45] LABS: BASOPHILS # (AUTO) 0.1 X10'3 (0-0.2); BASOPHILS % (AUTO) 0.7 % (0-1); EOSINOPHILS # (AUTO) 0.4 X10'3 (0-0.9); EOSINOPHILS % (AUTO) 5.3 % (0-6); HEMATOCRIT 28.7 % (35.0-45.0); HEMOGLOBIN 9.5 g/dl (12.0-16.0); LYMPHOCYTES % (AUTO) 26.9 % (21-51); MEAN CORPUSCULAR HEMOGLOBIN 28.8 PG (27.0-31.0); MEAN CORPUSCULAR HGB CONC 33.3 g/dL (33.0-36.5); MEAN CORPUSCULAR VOLUME 86.6 FL (78-98); MEAN PLATELET VOLUME 7.3 FL (7.4-10.4); MONOCYTES # (AUTO) 0.5 X10'3 (0-0.9); MONOCYTES % (AUTO) 7.2 % (2-12); NEUTROPHILS # (AUTO) 4.5 X10'3 (1.8-7.7); NEUTROPHILS % (AUTO) 59.9 % (42-75); PLATELET COUNT 262 X10'3 (140-440); RED BLOOD COUNT 3.31 X10'6 (4.20-5.60); RED CELL DISTRIBUTION WIDTH 13.9 % (11.5-14.5); WHITE BLOOD COUNT 7.5 X10'3 (4.5-11.0)
[2023-06-19 07:07] LABS: ALANINE AMINOTRANSFERASE 13 U/L (12-78); ALBUMIN 2.7 G/DL (3.4-5.0); ALBUMIN/GLOBULIN RATIO 0.8 (1.1-1.5); ALKALINE PHOSPHATASE 70 IU/L (46-116); ANION GAP 5 (8-16); ASPARTATE AMINO TRANSFERASE 13 U/L (10-37); BILIRUBIN,TOTAL 0.2 MG/DL (0.1-1.0); BLOOD UREA NITROGEN 18 MG/DL (7-18); BUN/CREATININE RATIO 11.9 (10.0-20.0); CALCIUM 8.6 MG/DL (8.5-10.1); CHLORIDE 105 MMOL/L (99-107); CREATININE 1.51 MG/DL (0.40-0.90); GLUCOSE 175 MG/DL (70-104); MAGNESIUM 1.5 MG/DL (1.5-2.4); POTASSIUM 4.7 MMOL/L (3.5-5.1); SODIUM 137 MMOL/L (135-145); TOTAL CARBON DIOXIDE 26.8 MMOL/L (24-32); TOTAL PROTEIN 6.2 G/DL (6.4-8.2); eCRCL 28 ML/MIN; eGFR 34 ML/MIN
[2023-06-19] MEDS: K and/or MAG REPLACEMENT MC SCH ×2 (08:00→20:00)
[2023-06-19] MEDS: budesonide 0.5mg/2ml UD nebule IH SCH ×2 (08:25→20:15)
[2023-06-19] MEDS: docusate sod 100mg capsule PO SCH ×2 (08:41→19:29)
[2023-06-19] MEDS: carVEDilol 12.5mg tablet PO SCH ×2 (08:42→19:29)
[2023-06-19] MEDS: fluconazole 100mg tablet PO SCH (08:43)
[2023-06-19] MEDS: oxybutynin 5mg tablet PO SCH ×2 (08:44→19:30)
[2023-06-19] MEDS: venlafaxine XR 75mg capsule (Q24H) PO SCH (08:45)
[2023-06-19] MEDS: atorvastatin 10mg tablet PO SCH (08:46)
[2023-06-19] MEDS: clonazePAM 1mg tablet PO SCH ×2 (08:46→19:30)
[2023-06-19] MEDS: nortriptyline 25mg capsule PO SCH ×2 (08:47→19:30)
[2023-06-19] MEDS: heparin, porcine 5000 units/ml vial SQ SCH ×2 (08:50→19:30)
[2023-06-19] MEDS: acetaminophen 325mg tablet PO PRN (09:08)
[2023-06-19] MEDS: insulin Lispro (HumaLOG) vial - multi-dose SQ SCH ×2 (09:37→14:18)
[2023-06-19] MEDS: nystatin 15 GM powder TP SCH ×3 (09:39→21:26)
[2023-06-19] MEDS: sacubitril/valsartan 49mg-51mg tablet PO SCH ×2 (09:45→19:29)
[2023-06-19] MEDS ORDERED: FLUC100T25 PO (12:31)
[2023-06-19] MEDS ORDERED: NYSPWD TP (12:31)
--- NOTE | 2023-06-19 12:43 | NUR ---
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
[2023-06-19] MEDS: normal saline 1000ml 1,000 ML IV SCH ×2 (17:35→19:38)
--- NOTE | 2023-06-19 19:08 | NUR ---
Problems reprioritized. Patient report given, questions answered & plan of care reviewed with
[2023-06-19] MEDS: insulin glargine (Lantus) pen - multi-dose SQ SCH (21:15)
[2023-06-20 02:53] VITALS: PULSE 79; RESP 16; O2SAT 95
[2023-06-20] MEDS: albuterol 2.5 MG/3 ML nebule NEB SCH ×2 (02:53→08:00)
[2023-06-20 03:00] VITALS: PULSE 75; RESP 16
--- NOTE | 2023-06-20 06:15 | NUR ---
Patient in room ORTHO 4021. I have received report from Yaneth RN and had the opportunity to ask questions and assume patient care.
[2023-06-20 06:44] LABS: BASOPHILS # (AUTO) 0.1 X10'3 (0-0.2); BASOPHILS % (AUTO) 0.9 % (0-1); EOSINOPHILS # (AUTO) 0.6 X10'3 (0-0.9); EOSINOPHILS % (AUTO) 7.5 % (0-6); HEMATOCRIT 27.5 % (35.0-45.0); HEMOGLOBIN 9.2 g/dl (12.0-16.0); LYMPHOCYTES # (AUTO) 1.9 X10'3 (1.1-4.8); LYMPHOCYTES % (AUTO) 24.3 % (21-51); MEAN CORPUSCULAR HEMOGLOBIN 28.9 PG (27.0-31.0); MEAN CORPUSCULAR HGB CONC 33.5 g/dL (33.0-36.5); MEAN CORPUSCULAR VOLUME 86.2 FL (78-98); MEAN PLATELET VOLUME 7.5 FL (7.4-10.4); MONOCYTES # (AUTO) 0.5 X10'3 (0-0.9); MONOCYTES % (AUTO) 6.2 % (2-12); NEUTROPHILS # (AUTO) 4.9 X10'3 (1.8-7.7); NEUTROPHILS % (AUTO) 61.1 % (42-75); PLATELET COUNT 263 X10'3 (140-440); RED BLOOD COUNT 3.18 X10'6 (4.20-5.60); RED CELL DISTRIBUTION WIDTH 13.9 % (11.5-14.5)
[2023-06-20 06:55] LABS: ALANINE AMINOTRANSFERASE 16 U/L (12-78); ALBUMIN 2.6 G/DL (3.4-5.0); ALBUMIN/GLOBULIN RATIO 0.7 (1.1-1.5); ALKALINE PHOSPHATASE 66 IU/L (46-116); ANION GAP 2 (8-16); ASPARTATE AMINO TRANSFERASE 14 U/L (10-37); BILIRUBIN,TOTAL 0.2 MG/DL (0.1-1.0); BLOOD UREA NITROGEN 14 MG/DL (7-18); BUN/CREATININE RATIO 10.1 (10.0-20.0); CALCIUM 8.6 MG/DL (8.5-10.1); CHLORIDE 105 MMOL/L (99-107); CREATININE 1.39 MG/DL (0.40-0.90); GLUCOSE 167 MG/DL (70-104); MAGNESIUM 1.4 MG/DL (1.5-2.4); POTASSIUM 4.6 MMOL/L (3.5-5.1); SODIUM 134 MMOL/L (135-145); TOTAL CARBON DIOXIDE 26.7 MMOL/L (24-32); TOTAL PROTEIN 6.2 G/DL (6.4-8.2); eCRCL 30 ML/MIN; eGFR 38 ML/MIN
[2023-06-20 08:00] VITALS: BP 144/81; PULSE 75; PULSE 76; RESP 16; TEMP 96.9; O2SAT 96; O2SAT 97
[2023-06-20] MEDS: K and/or MAG REPLACEMENT MC SCH (08:00)
[2023-06-20] MEDS: budesonide 0.5mg/2ml UD nebule IH SCH (08:00)
[2023-06-20] MEDS: nystatin 15 GM powder TP SCH (08:00)
[2023-06-20 08:07] VITALS: PULSE 72; RESP 16
[2023-06-20] MEDS: sacubitril/valsartan 49mg-51mg tablet PO SCH (09:27)
[2023-06-20] MEDS: heparin, porcine 5000 units/ml vial SQ SCH (09:28)
[2023-06-20] MEDS: fluconazole 100mg tablet PO SCH (09:28)
[2023-06-20] MEDS: docusate sod 100mg capsule PO SCH (09:28)
[2023-06-20] MEDS: atorvastatin 10mg tablet PO SCH (09:28)
[2023-06-20] MEDS: carVEDilol 12.5mg tablet PO SCH (09:28)
[2023-06-20] MEDS: nortriptyline 25mg capsule PO SCH (09:28)
[2023-06-20] MEDS: venlafaxine XR 75mg capsule (Q24H) PO SCH (09:28)
[2023-06-20] MEDS: oxybutynin 5mg tablet PO SCH (09:28)
[2023-06-20] MEDS: clonazePAM 1mg tablet PO SCH (09:28)
[2023-06-20] MEDS: insulin Lispro (HumaLOG) vial - multi-dose SQ SCH (09:38)
[2023-06-20 10:00] VITALS: BP 149/74; PULSE 74; RESP 16; TEMP 97.3; O2SAT 98
--- NOTE | 2023-06-20 15:22 | NUR ---
Patient discharge home today with spouse. All belongings were gathered and IV removed. Explained discharge instructions and answered all questions. Patient was alert and orientated x4. Patient was wheeled downstairs and helped into private vehicle.
== END 2023-06-20 15:22 | disposition home or self-care (01) | DRG 682 ==
LOC: ER 09:10 → ED HOLD 14:01 → EDBEDREQ 18:39 → ORTHO 4S 19:27
PROVIDERS: ADMIT Family Medicine; ATTEND Family Medicine
DX: N17.0 Acute kidney failure with tubular necrosis (principal); G93.41 Metabolic encephalopathy; N39.0 Urinary tract infection, site not specified; I50.22 Chronic systolic (congestive) heart failure; E86.0 Dehydration; E87.5 Hyperkalemia; G89.29 Other chronic pain; I11.0 Hypertensive heart disease with heart failure; J44.9 Chronic obstructive pulmonary disease, unspecified; E78.5 Hyperlipidemia, unspecified; F32.A Depression, unspecified; I95.9 Hypotension, unspecified; E11.9 Type 2 diabetes mellitus without complications; G25.3 Myoclonus; Z80.8 Family history of malignant neoplasm of other organs or systems; Z80.3 Family history of malignant neoplasm of breast; Z90.721 Acquired absence of ovaries, unilateral; Z90.49 Acquired absence of other specified parts of digestive tract; Z95.810 Presence of automatic (implantable) cardiac defibrillator; Z88.2 Allergy status to sulfonamides; Z79.899 Other long term (current) drug therapy; Z82.49 Family history of ischemic heart disease and other diseases of the circulatory system; Z87.891 Personal history of nicotine dependence
CPT/HCPCS: 36415; 70450; 71045; 80048; 80053; 81001; 82948; 83735; 83880; 84145; 85025; 87088; 92508; 92616; 93306; 94640; 94760; 96360; 97116; 97161; 97530; 99285; A4649; A6222; A6258; A6449; C1758; G0378; J0696; J1644; J1815; J2405; J7030; Q0163

== ENCOUNTER 2023-07-05 10:47 | Emergency (ER) | payer BC ==
[~2023-07-05] VITALS: Ht 154.9 cm; Wt 79.1 kg
[~2023-07-05 10:47] MED LIST changes: +ACET-2006 PO; -ASPI-611 PO; -ATOR10TA PO; +ATOR10TA70 PO; +CARV-50 PO; -CLON-527 PO; +CLON1TAB12 PO; -COR3.125T PO; +FURO40TA4 PO; -LOSA50TA64 PO; +METF-438 PO; -METF500T PO; +NORT25CA PO; -NORT25CA5 PO; +NYSPWD TP; -ONDA8TAB13 PO; -SPIR25TA PO; +SPIR25TA5 PO
[2023-07-05 11:36] VITALS: TEMP 97.6
[2023-07-05 11:46] LABS: BASOPHILS % (AUTO) 0.4 % (0-1); EOSINOPHILS # (AUTO) 0.5 X10'3 (0-0.9); EOSINOPHILS % (AUTO) 6.4 % (0-6); HEMATOCRIT 32.4 % (35.0-45.0); HEMOGLOBIN 11.1 g/dl (12.0-16.0); LYMPHOCYTES # (AUTO) 2.1 X10'3 (1.1-4.8); LYMPHOCYTES % (AUTO) 25.2 % (21-51); MEAN CORPUSCULAR HEMOGLOBIN 28.8 PG (27.0-31.0); MEAN CORPUSCULAR HGB CONC 34.3 g/dL (33.0-36.5); MEAN PLATELET VOLUME 7.5 FL (7.4-10.4); MONOCYTES # (AUTO) 0.4 X10'3 (0-0.9); MONOCYTES % (AUTO) 4.9 % (2-12); NEUTROPHILS # (AUTO) 5.2 X10'3 (1.8-7.7); NEUTROPHILS % (AUTO) 63.1 % (42-75); PLATELET COUNT 369 X10'3 (140-440); RED BLOOD COUNT 3.86 X10'6 (4.20-5.60); RED CELL DISTRIBUTION WIDTH 13.8 % (11.5-14.5); WHITE BLOOD COUNT 8.2 X10'3 (4.5-11.0)
[2023-07-05 11:50] LABS: ALANINE AMINOTRANSFERASE 14 U/L (12-78); ALBUMIN 3.2 G/DL (3.4-5.0); ALBUMIN/GLOBULIN RATIO 0.8 (1.1-1.5); ALKALINE PHOSPHATASE 79 IU/L (46-116); ANION GAP 7 (8-16); ASPARTATE AMINO TRANSFERASE 11 U/L (10-37); BILIRUBIN,TOTAL 0.3 MG/DL (0.1-1.0); BLOOD UREA NITROGEN 29 MG/DL (7-18); BUN/CREATININE RATIO 12.9 (10.0-20.0); CALCIUM 8.9 MG/DL (8.5-10.1); CHLORIDE 94 MMOL/L (99-107); CREATININE 2.24 MG/DL (0.40-0.90); GLUCOSE 121 MG/DL (70-104); SODIUM 129 MMOL/L (135-145); TOTAL CARBON DIOXIDE 27.9 MMOL/L (24-32); TOTAL PROTEIN 7.2 G/DL (6.4-8.2); eCRCL 19 ML/MIN; eGFR 22 ML/MIN
[2023-07-05] MEDS ORDERED: carVEDilol 12.5mg tablet PO STA (11:52)
[2023-07-05] MEDS ORDERED: clonazePAM 1mg tablet PO ONE (11:55)
[2023-07-05] MEDS ORDERED: baclofen 10mg tablet PO PRN (11:55)
[2023-07-05 11:58] LABS: PRO BRAIN NATRIURETIC PEPTIDE 1083 PG/ML (0-125)
[2023-07-05 12:55] LABS: BILIRUBIN,URINE NEGATIVE (Neg); CLARITY,URINE SLIGHTLY CLOUDY (Clear); COLOR,URINE STRAW (Yellow); GLUCOSE, URINE NEGATIVE (Neg); KETONES,URINE NEGATIVE (Neg); LEUKOCYTE ESTERASE ,URINE TRACE (Neg); NITRITES, URINE NEGATIVE (Neg); OCCULT BLOOD,URINE NEGATIVE (Neg); PH,URINE 5.5 (4.8-8.0); PROTEIN,URINE NEGATIVE (Neg); UROBILINOGEN,URINE 0.2 E.U/dL (0.2-1.0)
[2023-07-05 12:57] LABS: UA COLLECTION TYPE VOIDED
[2023-07-05 13:01] LABS: BACTERIA,URINE 1+ /HPF (Neg); RBC,URINE NONE SEEN /HPF (0-2); SQUAMOUS EPITHELIAL CELL,UR MODERATE /LPF (FEW); WBC CLUMPS,URINE FEW /HPF (NEGATIVE)
[2023-07-05 13:02] LABS: MUCUS STRANDS FEW /LPF (Neg)
[2023-07-05] MEDS ORDERED: normal saline 1000ML IV soln IVB ONE (13:10)
[2023-07-05 14:55] VITALS: BP 118/59; PULSE 76; RESP 18; O2SAT 96
== END 2023-07-05 14:57 | disposition home or self-care (01) ==
LOC: ER 10:48
DX: E87.1 Hypo-osmolality and hyponatremia (principal); R42 Dizziness and giddiness; I13.0 Hypertensive heart and chronic kidney disease with heart failure and stage 1 through stage 4 chronic kidney disease, or unspecified chronic kidney disease; E13.22 Other specified diabetes mellitus with diabetic chronic kidney disease; N18.9 Chronic kidney disease, unspecified
CPT/HCPCS: 36415; 80053; 81001; 83880; 84484; 85025; 87088; 93005; 99285; J7030

== ENCOUNTER 2024-01-15 12:03 | Inpatient (IN) | payer BC ==
[~2024-01-15] VITALS: Ht 154.9 cm; Wt 75.0 kg
[~2024-01-15 12:03] MED LIST changes: -ACET-2006 PO; +BAC10T PO; -BACL10TA2 PO; +EMPA10TA PO; +FURO20TA4 PO; -FURO40TA4 PO; +LEVO25TA7 PO; -METF-438 PO; -OXYB5TAB16 PO; +OXYB5TAB21 PO
[2024-01-15 12:22] LABS: BASOPHILS # (AUTO) 0.1 X10'3 (0-0.2); BASOPHILS % (AUTO) 0.5 % (0-1); EOSINOPHILS # (AUTO) 0.6 X10'3 (0-0.9); EOSINOPHILS % (AUTO) 5.3 % (0-6); HEMATOCRIT 39.3 % (35.0-45.0); LYMPHOCYTES # (AUTO) 2.9 X10'3 (1.1-4.8); LYMPHOCYTES % (AUTO) 27.1 % (21-51); MEAN CORPUSCULAR HEMOGLOBIN 27.6 PG (27.0-31.0); MEAN CORPUSCULAR HGB CONC 33.1 g/dL (33.0-36.5); MEAN CORPUSCULAR VOLUME 83.6 FL (78-98); MEAN PLATELET VOLUME 7.7 FL (7.4-10.4); MONOCYTES # (AUTO) 0.7 X10'3 (0-0.9); MONOCYTES % (AUTO) 6.4 % (2-12); NEUTROPHILS # (AUTO) 6.5 X10'3 (1.8-7.7); NEUTROPHILS % (AUTO) 60.7 % (42-75); PLATELET COUNT 307 X10'3 (140-440); RED CELL DISTRIBUTION WIDTH 14.2 % (11.5-14.5); WHITE BLOOD COUNT 10.7 X10'3 (4.5-11.0)
[2024-01-15 12:51] LABS: ALANINE AMINOTRANSFERASE 10 U/L (12-78); ALBUMIN 3.1 G/DL (3.4-5.0); ALBUMIN/GLOBULIN RATIO 0.7 (1.1-1.5); ALKALINE PHOSPHATASE 127 IU/L (46-116); ANION GAP 10 (8-16); ASPARTATE AMINO TRANSFERASE 6 U/L (10-37); BILIRUBIN,TOTAL 0.4 MG/DL (0.1-1.0); BLOOD UREA NITROGEN 24 MG/DL (7-18); BUN/CREATININE RATIO 12.3 (10.0-20.0); CALCIUM 8.8 MG/DL (8.5-10.1); CHLORIDE 96 MMOL/L (99-107); CREATININE 1.95 MG/DL (0.40-0.90); GLUCOSE 274 MG/DL (70-104); POTASSIUM 4.4 MMOL/L (3.5-5.1); PRO BRAIN NATRIURETIC PEPTIDE 815 PG/ML (0-125); SODIUM 128 MMOL/L (135-145); TOTAL CARBON DIOXIDE 22.4 MMOL/L (24-32); TOTAL PROTEIN 7.8 G/DL (6.4-8.2); eCRCL 21 ML/MIN; eGFR 26 ML/MIN
[2024-01-15] MEDS: aspirin 325mg tablet PO ONE (15:41)
[2024-01-15] MEDS: ondansetron/PF 4mg/2ml inj IV ONE (15:46)
[2024-01-15 15:47] LABS: LIPASE 20 U/L (16-77)
[2024-01-15] MEDS: morphine 4 MG/ML inj SYRINge IV ONE ×2 (15:47→17:42)
[2024-01-15] MEDS ORDERED: HYDROcodone/acetaminophen 10/325mg tab PO PRN (18:05)
[2024-01-15] MEDS ORDERED: magnesium 2GM in 50ml NS 50 ML IV PRN (18:05)
[2024-01-15] MEDS ORDERED: magnesium 4gm in 100ml NS 100 ML IV PRN (18:05)
[2024-01-15] MEDS ORDERED: magnesium hydroxide 30ml (MOM) UD suspension PO PRN (18:05)
[2024-01-15] MEDS ORDERED: acetaminophen 325mg tablet PO PRN (18:05)
[2024-01-15] MEDS ORDERED: potassium Cl 40MEQ/1/2NS 520ml 520 ML IV PRN (18:05)
[2024-01-15] MEDS ORDERED: morphine 2 MG/ML inj. syringe IV PRN ×2 (18:05)
[2024-01-15] MEDS ORDERED: potassium Cl 20 mEq SR tablet PO PRN ×2 (18:05)
[2024-01-15] MEDS ORDERED: mag hydrox/Alum hydrox/simeth 30ml oral suspension PO PRN (18:05)
[2024-01-15] MEDS ORDERED: ondansetron/PF 4mg/2ml inj IV PRN (18:05)
[2024-01-15] MEDS ORDERED: dextrose 50%-water 50ml dispensing syringe IV PRN ×2 (18:10)
[2024-01-15] MEDS ORDERED: DEXTROSE 15 GM of carb/4 tabs (each vial/BOTTLE has 4 tablets) PO PRN ×2 (18:10)
[2024-01-15] MEDS ORDERED: glucagon, human recombinant 1mg kit SUBCUT PRN (18:10)
[2024-01-15] MEDS ORDERED: aminophylline 250mg/10ml inj. IV PRN (18:20)
[2024-01-15] MEDS ORDERED: regadenoson 0.4mg/5ml syringe IV PRN (18:20)
[2024-01-15] MEDS ORDERED: nitroGLYCERIN 0.4mg SUBLingual tab SL PRN (18:20)
[2024-01-15] MEDS ORDERED: metoprolol tartrate 1mg/ml inj IV PRN (18:20)
[2024-01-15] MEDS ORDERED: lactulose 20gm/30ml cup PO ONE (18:50)
[2024-01-15 19:25] LABS: HEMOGLOBIN A1C 4.4 % (4.5-6.2)
[2024-01-15 19:48] LABS: CHOLESTEROL 135 MG/DL (0-200); HDL CHOLESTEROL 34 MG/DL (35-60); LDL CHOLESTEROL 72 MG/DL (50-100); TRIGLYCERIDES 162 MG/DL (20-135)
[2024-01-15] MEDS: K and/or MAG REPLACEMENT MC SCH (20:00)
[2024-01-15] MEDS ORDERED: sacubitril/valsartan 24mg-26mg tablet PO SCH (20:00)
[2024-01-15] MEDS: normal saline 1000ml 1,000 ML IV SCH (20:49)
[2024-01-15] MEDS: atorvastatin 10mg tablet PO SCH (20:50)
[2024-01-15] MEDS: carVEDilol 12.5mg tablet PO SCH (20:50)
[2024-01-15] MEDS: pantoprazole 40mg Tablet.DR PO SCH (20:50)
[2024-01-15] MEDS: docusate sod 100mg capsule PO SCH (20:51)
[2024-01-15] MEDS: sennosides/docusate sodium tablet PO SCH (20:51)
[2024-01-15] MEDS ORDERED: insulin glargine (Lantus) pen - multi-dose SQ SCH (21:00)
[2024-01-15 22:00] VITALS: BP 96/60; PULSE 65; RESP 16; TEMP 97.3; O2SAT 99
[2024-01-15] MEDS: insulin glargine (Lantus) pen - multi-dose SQ SCH (22:19)
[2024-01-15] MEDS: INSULIN LISPRO 100 UNIT/ML INSULN.PEN MULTI-DOSE SQ SCH (22:21)
[2024-01-16] VITALS (16 sets, daily range): BP systolic 88–107; BP diastolic 49–68; PULSE 52–74; RESP 8–21; TEMP 96.9–98; O2SAT 94–97
[2024-01-16] MEDS: albuterol 2.5 MG/3 ML nebule NEB SCH (07:20)
[2024-01-16] MEDS: venlafaxine XR 75mg capsule (Q24H) PO SCH (07:48)
[2024-01-16 07:50] LABS: BASOPHILS # (AUTO) 0.1 X10'3 (0-0.2); BASOPHILS % (AUTO) 0.6 % (0-1); EOSINOPHILS # (AUTO) 0.4 X10'3 (0-0.9); EOSINOPHILS % (AUTO) 4.7 % (0-6); LYMPHOCYTES # (AUTO) 2.4 X10'3 (1.1-4.8); LYMPHOCYTES % (AUTO) 26.2 % (21-51); MEAN CORPUSCULAR HEMOGLOBIN 27.4 PG (27.0-31.0); MEAN CORPUSCULAR HGB CONC 32.3 g/dL (33.0-36.5); MEAN CORPUSCULAR VOLUME 84.9 FL (78-98); MEAN PLATELET VOLUME 8.1 FL (7.4-10.4); MONOCYTES # (AUTO) 0.6 X10'3 (0-0.9); MONOCYTES % (AUTO) 6.8 % (2-12); NEUTROPHILS # (AUTO) 5.6 X10'3 (1.8-7.7); NEUTROPHILS % (AUTO) 61.7 % (42-75); PLATELET COUNT 252 X10'3 (140-440); RED BLOOD COUNT 4.36 X10'6 (4.20-5.60); RED CELL DISTRIBUTION WIDTH 14.6 % (11.5-14.5); WHITE BLOOD COUNT 9.1 X10'3 (4.5-11.0)
[2024-01-16] MEDS: normal saline 250ml IV soln 250 ML IV ONE (07:55)
[2024-01-16] MEDS: levoTHYROXINE 25mcg tablet PO SCH (07:58)
[2024-01-16] MEDS ORDERED: SALMETEROL PO SCH (08:00)
[2024-01-16] MEDS ORDERED: FLUTICASONE PROPION PO SCH (08:00)
[2024-01-16] MEDS ORDERED: [UNRECOGNIZED DRUG - OTHER] PO SCH (08:00)
[2024-01-16 08:30] LABS: ALANINE AMINOTRANSFERASE 30 U/L (12-78); ALBUMIN 2.7 G/DL (3.4-5.0); ALBUMIN/GLOBULIN RATIO 0.6 (1.1-1.5); ALKALINE PHOSPHATASE 153 IU/L (46-116); ANION GAP 9 (8-16); ASPARTATE AMINO TRANSFERASE 26 U/L (10-37); BILIRUBIN,TOTAL 0.3 MG/DL (0.1-1.0); BLOOD UREA NITROGEN 31 MG/DL (7-18); CALCIUM 8.3 MG/DL (8.5-10.1); CHLORIDE 96 MMOL/L (99-107); CREATININE 2.06 MG/DL (0.40-0.90); GLUCOSE 330 MG/DL (70-104); MAGNESIUM 2.4 MG/DL (1.5-2.4); POTASSIUM 4.7 MMOL/L (3.5-5.1); SODIUM 130 MMOL/L (135-145); THYROID STIMULATING HORMONE 2.18 ulU/ml (0.34-4.50); TOTAL PROTEIN 6.9 G/DL (6.4-8.2); eCRCL 20 ML/MIN; eGFR 24 ML/MIN
[2024-01-16] MEDS ORDERED: spironolactone 25 MG tablet PO SCH (08:30)
[2024-01-16] MEDS: INSULIN LISPRO 100 UNIT/ML INSULN.PEN MULTI-DOSE SQ SCH ×2 (09:00→12:29)
[2024-01-16] MEDS: budesonide 0.5mg/2ml UD nebule IH SCH (09:00)
[2024-01-16 09:44] LABS: OSMOLALITY 296 MOSM/K (280-300)
[2024-01-16] MEDS: lactulose 20gm/30ml cup PO ONE (12:43)
[2024-01-16] MEDS: DOBUTamine-DoBUTrex 500mg/D5W 250 ML IV SCH (14:08)
[2024-01-16] MEDS: aspirin 81mg, enteric-coated 1 TAB TABLET.DR PO SCH (14:09)
[2024-01-16] MEDS: nortriptyline 25mg capsule PO SCH (15:21)
[2024-01-16 15:30] LABS: BILIRUBIN,URINE NEGATIVE (Neg); CLARITY,URINE CLOUDY (Clear); COLOR,URINE YELLOW (Yellow); GLUCOSE, URINE >=1000 mg/dl (Neg); KETONES,URINE NEGATIVE (Neg); LEUKOCYTE ESTERASE ,URINE SMALL (Neg); NITRITES, URINE NEGATIVE (Neg); OCCULT BLOOD,URINE MODERATE (Neg); PH,URINE 5.5 (4.8-8.0); PROTEIN,URINE NEGATIVE (Neg); UROBILINOGEN,URINE 0.2 E.U/dL (0.2-1.0)
[2024-01-16 15:32] LABS: UA COLLECTION TYPE NON-SPECIFIED
[2024-01-16 15:45] LABS: BACTERIA,URINE 3+ /HPF (Neg); SQUAMOUS EPITHELIAL CELL,UR NONE SEEN /LPF (FEW); WBC,URINE TNTC /HPF (0-4)
[2024-01-16 15:49] LABS: YEAST MANY /HPF (NEGATIVE)
[2024-01-16 15:51] LABS: TRANSITIONAL EPI CELLS,URINE FEW /HPF
[2024-01-16 17:42] LABS: HIV ANTIBODY 1&2 RAPID NON-REACTIVE (Neg)
[2024-01-16] MEDS ORDERED: ACET-1 PO (18:05)
[2024-01-16] MEDS: heparin, porcine 5000 units/ml vial SQ SCH (20:03)
[2024-01-16] MEDS: clonazePAM 1mg tablet PO SCH (20:04)
[2024-01-16] MEDS: insulin glargine (Lantus) pen - multi-dose SQ SCH (22:03)
[2024-01-16] MEDS: nystatin 15 GM powder TP SCH (22:36)
[2024-01-17] VITALS (9 sets, daily range): BP systolic 80–107; BP diastolic 56–69; PULSE 62–76; RESP 12–18; TEMP 97.7–98; O2SAT 92–97
[2024-01-17] MEDS: clonazePAM 1mg tablet PO ONE (01:01)
[2024-01-17] MEDS: HYDROcodone/acetaminophen 5mg/325mg tablet PO PRN (01:03)
[2024-01-17 07:08] LABS: BASOPHILS % (AUTO) 0.4 % (0-1); EOSINOPHILS # (AUTO) 0.6 X10'3 (0-0.9); HEMATOCRIT 37.2 % (35.0-45.0); HEMOGLOBIN 11.9 g/dl (12.0-16.0); LYMPHOCYTES # (AUTO) 2.8 X10'3 (1.1-4.8); LYMPHOCYTES % (AUTO) 31.1 % (21-51); MEAN CORPUSCULAR HEMOGLOBIN 27.2 PG (27.0-31.0); MEAN PLATELET VOLUME 7.8 FL (7.4-10.4); MONOCYTES # (AUTO) 0.4 X10'3 (0-0.9); MONOCYTES % (AUTO) 4.7 % (2-12); NEUTROPHILS # (AUTO) 5.1 X10'3 (1.8-7.7); NEUTROPHILS % (AUTO) 56.8 % (42-75); PLATELET COUNT 266 X10'3 (140-440); RED BLOOD COUNT 4.38 X10'6 (4.20-5.60); RED CELL DISTRIBUTION WIDTH 14.7 % (11.5-14.5)
[2024-01-17 07:25] LABS: ALANINE AMINOTRANSFERASE 27 U/L (12-78); ALBUMIN 2.8 G/DL (3.4-5.0); ALBUMIN/GLOBULIN RATIO 0.6 (1.1-1.5); ALKALINE PHOSPHATASE 131 IU/L (46-116); ANION GAP 11 (8-16); ASPARTATE AMINO TRANSFERASE 19 U/L (10-37); BILIRUBIN,TOTAL 0.3 MG/DL (0.1-1.0); BLOOD UREA NITROGEN 36 MG/DL (7-18); CALCIUM 8.2 MG/DL (8.5-10.1); CHLORIDE 98 MMOL/L (99-107); CREATININE 1.89 MG/DL (0.40-0.90); GLUCOSE 187 MG/DL (70-104); MAGNESIUM 2.3 MG/DL (1.5-2.4); POTASSIUM 5.1 MMOL/L (3.5-5.1); SODIUM 131 MMOL/L (135-145); TOTAL CARBON DIOXIDE 22.5 MMOL/L (24-32); TOTAL PROTEIN 7.2 G/DL (6.4-8.2); eCRCL 22 ML/MIN; eGFR 27 ML/MIN
[2024-01-17] MEDS ORDERED: clonazePAM 1mg tablet PO SCH (08:00)
== END 2024-01-17 17:00 | disposition home or self-care (01) | DRG 392 ==
LOC: ER 12:03 → ED HOLD 18:09 → PCU 3S 21:36 → OBSVTOIN 01-16 12:05
PROVIDERS: ADMIT Family Medicine; ATTEND Family Medicine
PROC: 4A02XM4 Measurement of Cardiac Total Activity, External Approach (ICD-10-PCS; principal; 2024-01-16)
PROC: 3E033HZ Introduction of Radioactive Substance into Peripheral Vein, Percutaneous Approach (ICD-10-PCS; 2024-01-16)
DX: K21.9 Gastro-esophageal reflux disease without esophagitis (principal); E87.1 Hypo-osmolality and hyponatremia; I13.0 Hypertensive heart and chronic kidney disease with heart failure and stage 1 through stage 4 chronic kidney disease, or unspecified chronic kidney disease; I50.22 Chronic systolic (congestive) heart failure; N18.4 Chronic kidney disease, stage 4 (severe); N17.9 Acute kidney failure, unspecified; J44.9 Chronic obstructive pulmonary disease, unspecified; I95.9 Hypotension, unspecified; E11.22 Type 2 diabetes mellitus with diabetic chronic kidney disease; K59.00 Constipation, unspecified; G89.29 Other chronic pain; E03.9 Hypothyroidism, unspecified; E11.21 Type 2 diabetes mellitus with diabetic nephropathy; R82.71 Bacteriuria; Z79.84 Long term (current) use of oral hypoglycemic drugs; Z80.3 Family history of malignant neoplasm of breast; Z80.8 Family history of malignant neoplasm of other organs or systems; Z79.82 Long term (current) use of aspirin; Z88.2 Allergy status to sulfonamides; Z88.8 Allergy status to other drugs, medicaments and biological substances; Z90.49 Acquired absence of other specified parts of digestive tract; Z95.810 Presence of automatic (implantable) cardiac defibrillator; Z79.4 Long term (current) use of insulin
CPT/HCPCS: 36415; 71045; 74176; 76770; 78451; 80053; 80061; 81001; 82043; 82570; 82948; 83036; 83690; 83735; 83880; 83930; 83935; 84155; 84165; 84300; 84443; 84484; 85025; 86038; 86162; 86256; 86703; 87081; 87340; 93005; 93306; 94640; 94760; 96374; 96375; 96376; 99285; A6213; A6250; A9500; G0378; J1250; J1644; J1815; J2270; J2405; J7030; J7050